=== PATIENT | female | born 1990 | race Two or more races ===

== ENCOUNTER 2018-03-17 12:51 | Emergency (ER) | payer SELFPAY ==
[2018-03-17 15:08] LABS: ADD MAN DIFF? NO
[2018-03-17] MEDS: ONDANSETRON 4 MG INJ IV (15:09)
[2018-03-17] MEDS: SOD CHLORIDE 0.9% 1,000 ML IV (15:09)
[2018-03-17 15:11] LABS: WHITE BLOOD COUNT 10.9 10^3/ul (4.8-10.8)
[2018-03-17 15:11] LABS: BASOPHILS % 0.1 % (0.0-2.0); HEMOGLOBIN 13.7 g/dl (12.0-16.0); LYMPHOCYTES % 8.8 % (15.0-51.0); MEAN CORPUSCULAR HGB CONC 32.6 g/dl (32.0-37.0); MEAN PLATELET VOLUME 9.7 fl (7.4-10.4); MONOCYTE # 0.7 10^3/ul (0.3-0.9); MONOCYTES % 6.2 % (0.0-11.0); NEUTROPHIL # 9.2 10^3/ul (1.6-7.5); NEUTROPHILS % 84.4 % (39.0-77.0); PLATELET COUNT 415 10^3/UL (140-415); RED BLOOD COUNT 4.72 10^6/ul (4.20-5.40); RED CELL DISTRIBUTION WIDTH 13.9 % (11.5-14.5)
[2018-03-17 15:20] LABS: ADD UMIC NO; UR ASCORBIC ACID NEGATIVE (NEGATIVE); UR BILIRUBIN (Dip) NEGATIVE (NEGATIVE); UR BLOOD (Dip) NEGATIVE (NEGATIVE); UR CLARITY SLIGHTLY CLOUDY (CLEAR); UR COLOR YELLOW (YELLOW); UR GLUCOSE (Dip) NEGATIVE (NEGATIVE); UR KETONES (Dip) NEGATIVE (NEGATIVE); UR LEUKOCYTE ESTERASE (Dip) NEGATIVE Leu/ul (NEGATIVE); UR MUCUS FEW /HPF (NONE SEEN); UR NITRITE (Dip) NEGATIVE (NEGATIVE); UR RBC 2 /HPF (0-5); UR SPECIFIC GRAVITY (Dip) 1.025 (1.003-1.030); UR SQUAMOUS EPITHELIAL CELL FEW /HPF (FEW); UR TOTAL PROTEIN (Dip) NEGATIVE (NEGATIVE); UR UROBILINOGEN (Dip) NEGATIVE (NEGATIVE); UR WBC 1 /HPF (0-5)
[2018-03-17 15:30] LABS: ALANINE AMINOTRANSFERASE 32 IU/L (13-69); ALBUMIN/GLOBULIN RATIO 1.21; ALKALINE PHOSPHATASE 69 IU/L (42-121); ANION GAP 15 (5-13); ASPARTATE AMINO TRANSFERASE 38 IU/L (15-46); BILIRUBIN,INDIRECT 0.1 mg/dl (0-1.1); BILIRUBIN,TOTAL 0.1 mg/dl (0.2-1.3); BLOOD UREA NITROGEN 17 mg/dl (7-20); CALCIUM 9.8 mg/dl (8.4-10.2); CARBON DIOXIDE 31 mmol/L (21-31); CHLORIDE 97 mmol/L (97-110); CREATININE 0.94 mg/dl (0.44-1.00); Estimated GFR > 60 mL/min (>60); GLUCOSE 89 mg/dl (70-220); LIPASE 23 U/L (23-300); POTASSIUM 3.7 mmol/L (3.5-5.1); SODIUM 143 mmol/L (135-144); TOTAL PROTEIN 9.1 g/dl (6.1-8.1)
[2018-03-17] MEDS: KETOROLAC 30 MG INJ IV (17:30)
[2018-03-17 17:40] LABS: MONOTEST Negative (NEG)
== END 2018-03-17 18:09 | disposition home or self-care (01) ==
LOC: FTE 12:51
DX: R19.7 Diarrhea, unspecified (principal); R05 Cough; R11.2 Nausea with vomiting, unspecified
CPT/HCPCS: 36415; 71045; 80053; 81001; 81003; 81025; 83690; 85025; 86308; 96361; 96374; 96375; 99284-25